=== PATIENT | female | born 1935 | race Two or more races ===

== ENCOUNTER 2020-03-14 01:46 | Outpatient (CLI) | payer OTHER | END 2020-03-14 01:47 | disposition home or self-care (01) | LOC: PPH VACUNA 01:46 | PROVIDERS: ATTEND Emergency Medicine Pediatric Emergency Medicine | DX: Z23 Encounter for immunization (principal) ==

== ENCOUNTER → 2020-04-04 | Outpatient (CLI) | payer OTHER | END | disposition home or self-care (01) | LOC: PPH VACUNA | PROVIDERS: ATTEND Emergency Medicine Pediatric Emergency Medicine | DX: Z23 Encounter for immunization (principal) ==

== ENCOUNTER 2022-08-15 09:23 | Outpatient (CLI) | payer OTHER | END 2022-08-15 09:30 | disposition home or self-care (01) | LOC: RAD 09:23 | PROVIDERS: ATTEND Orthopaedic Surgery | DX: M25.522 Pain in left elbow (principal) ==